=== PATIENT | female | born 1960 | race Caucasian/White ===

== ENCOUNTER 2021-09-23 17:20 | Inpatient (IN) | payer OTHER ==
[2021-09-23 17:50] VITALS: BMI 30.7
[2021-09-23] MEDS ORDERED: IBUPROFEN 400 MG TABLET (FP) PO PRN (19:30)
[2021-09-23] MEDS ORDERED: chlordiazePOXIDE HCL 25 MG CAPSULE PO PRN (19:30)
[2021-09-23] MEDS ORDERED: BISMUTH SUBSALICYLATE 524 MG/30 ML PO PRN (19:30)
[2021-09-23] MEDS ORDERED: BENZOCAINE/MENTHOL (CHLORASEPTIC ) LOZENGE MM PRN (19:30)
[2021-09-23] MEDS ORDERED: METHOCARBAMOL 500 MG TABLET PO PRN (19:30)
[2021-09-23] MEDS ORDERED: MAGNESIUM CITRATE 300 ML BOTTLE PO PRN (19:30)
[2021-09-23] MEDS ORDERED: MAG HYDROX/AL HYDROX/SIMETH 30 ML UNIT-DOSE CUP PO PRN (19:30)
[2021-09-23] MEDS ORDERED: ACETAMINOPHEN 325 MG TABLET (FP) PO PRN ×2 (19:30)
[2021-09-23] MEDS ORDERED: DICYCLOMINE HCL 10 MG CAPSULE PO PRN (19:30)
[2021-09-23] MEDS ORDERED: LOPERAMIDE HCL 2 MG CAPSULE PO PRN (19:30)
[2021-09-23] MEDS ORDERED: IBUPROFEN 600 MG TABLET (FP) PO PRN (19:30)
[2021-09-23] MEDS ORDERED: ONDANSETRON *ODT* 4 MG TABLET SL PRN (19:30)
[2021-09-23] MEDS ORDERED: MAGNESIUM HYDROX 2400MG/30ML ORAL SUSPENSION 30 ML CUP PO PRN (19:30)
[2021-09-23] MEDS ORDERED: LORazepam 1 MG TABLET PO PRN (20:58)
[2021-09-23] MEDS: THIAMINE HCL 100 MG TABLET (FP) PO SCH (22:56)
[2021-09-23] MEDS: LORazepam 2 MG TABLET PO SCH (22:56)
[2021-09-23] MEDS: MELATONIN 5 MG TABLETS PO SCH (22:57)
[2021-09-23] MEDS ORDERED: chlordiazePOXIDE HCL 25 MG CAPSULE PO SCH (23:00)
[2021-09-24] MEDS: BACITRACIN 0.9 GM PACKET TP SCH ×3 (01:17→23:54)
[2021-09-24] MEDS: LORazepam 2 MG TABLET PO SCH ×4 (06:19→23:31)
[2021-09-24 07:14] VITALS: PULSE 102
[2021-09-24] MEDS: AMOX TR/POT CLAV 875MG/125MG TABLETS (FP) PO SCH ×2 (07:29→17:02)
[2021-09-24 09:32] VITALS: BP 136/70; TEMP 96.6
[2021-09-24] MEDS ORDERED: PRENATAL VITAMINS W/ FOLIC ACID TABLET (FP) PO SCH (10:00)
[2021-09-24 12:58] LABS: HEMATOCRIT 43.2 % (32.4-45.2); HEMOGLOBIN 14.8 GM/dL (10.7-15.3); MCH 29.7 pg (25.7-33.7); MCHC 34.3 g/dl (32.0-36.0); MEAN CELL VOLUME 86.7 fl (80-96); PLATELET COUNT 214 10^3/uL (134-434); RBC 4.98 M/mm3 (3.60-5.2); RDW 15.2 % (11.6-15.6); WHITE BLOOD COUNT 8.1 K/mm3 (4.0-10.0)
[2021-09-24 13:17] LABS: ALBUMIN 3.6 g/dl (3.4-5.0); BLOOD UREA NITROGEN 11.8 mg/dL (7-18); CALCIUM 9.1 mg/dL (8.5-10.1); CREATININE 0.5 mg/dL (0.55-1.3)
[2021-09-24 13:19] LABS: BILIRUBIN,TOTAL 1.2 mg/dL (0.2-1)
[2021-09-24 13:20] LABS: TOT PROT 6.8 g/dl (6.4-8.2)
[2021-09-24] MEDS ORDERED: FAMOTIDINE 20 MG TABLET PO SCH (22:00)
[2021-09-24] MEDS ORDERED: POTASSIUM CHLORIDE ORAL LIQUID 20 MEQ/15 ML PO SCH (22:00)
[2021-09-24] MEDS: MELATONIN 5 MG TABLETS PO SCH (23:54)
[2021-09-24] MEDS: THIAMINE HCL 100 MG TABLET (FP) PO SCH (23:55)
[2021-09-25] MEDS ORDERED: LORazepam 1 MG TABLET PO SCH (05:00)
[2021-09-25] MEDS ORDERED: chlordiazePOXIDE HCL 25 MG CAPSULE PO SCH (05:00)
[2021-09-25] MEDS ORDERED: ASPIRIN 81 MG CHEWABLE TABLETS PO SCH (10:00)
[2021-09-26] MEDS ORDERED: chlordiazePOXIDE HCL 10 MG CAPSULE PO PRN
[2021-09-26] MEDS ORDERED: LORazepam 0.5 MG TABLET PO PRN
[2021-09-26] MEDS ORDERED: chlordiazePOXIDE HCL 10 MG CAPSULE PO SCH (05:00)
[2021-09-26] MEDS ORDERED: LORazepam 0.5 MG TABLET PO SCH (05:00)
[2021-09-27] MEDS ORDERED: chlordiazePOXIDE HCL 10 MG CAPSULE PO SCH (05:00)
[2021-09-27] MEDS ORDERED: LORazepam 0.5 MG TABLET PO ONE (05:00)
[2021-09-28] MEDS ORDERED: chlordiazePOXIDE HCL 10 MG CAPSULE PO ONE (05:00)
== END 2021-09-24 00:55 | disposition short-term general hospital (02) | DRG 773 ==
LOC: YASAS 17:20 → Y6N 19:12
PROVIDERS: ADMIT Allergy & Immunology; ATTEND Surgery
PROC: HZ2ZZZZ Detoxification Services for Substance Abuse Treatment (ICD-10-PCS; principal; 2021-09-23)
DX: F11.23 Opioid dependence with withdrawal (principal); F10.230 Alcohol dependence with withdrawal, uncomplicated; F32.A Depression, unspecified; F41.9 Anxiety disorder, unspecified; I48.91 Unspecified atrial fibrillation; I10 Essential (primary) hypertension; K21.9 Gastro-esophageal reflux disease without esophagitis; M54.41 Lumbago with sciatica, right side; G89.29 Other chronic pain; Z56.0 Unemployment, unspecified; Z87.891 Personal history of nicotine dependence
CPT/HCPCS: 36415; 80053; 85027; 86780; 87811; 93005; 93010; C9803-CS; U0003; U0005

== ENCOUNTER 2021-09-24 11:34 | Inpatient (IN) | payer OTHER ==
[2021-09-24] MEDS ORDERED: SODIUM CHLORIDE 0.9% 500 ML INFUS.BAG IV ONE (12:12)
[2021-09-24] MEDS ORDERED: METOPROLOL TARTRATE 5 MG/5 ML VIAL IVPUSH ONE ×2 (12:25→13:48)
[2021-09-24] MEDS ORDERED: METOPROLOL TARTRATE 5 MG/5 ML VIAL ONE ×2 (12:37→13:55)
[2021-09-24 13:04] LABS: BASO % 1.2 % (0-2.0); EOS % 1.3 % (0-4.5); HEMATOCRIT 43.2 % (32.4-45.2); HEMOGLOBIN 14.6 GM/dL (10.7-15.3); LYMPH % 22.5 % (8-40); MCH 29.2 pg (25.7-33.7); MCHC 33.8 g/dl (32.0-36.0); MEAN CELL VOLUME 86.2 fl (80-96); MEAN PLT VOLUME 7.6 fl (7.5-11.1); MONO % 7.5 % (3.8-10.2); NEUT % 67.5 % (42.8-82.8); PLATELET COUNT 203 10^3/uL (134-434); RBC 5.01 M/mm3 (3.60-5.2); RDW 15.3 % (11.6-15.6); WHITE BLOOD COUNT 8.8 K/mm3 (4.0-10.0)
[2021-09-24 13:10] LABS: EPI CELLS 5 /uL (0-25.1); HYALINE CASTS 1 /uL (0-3.1); URINE APPEARANCE CLEAR; URINE BACTERIA 10 /uL (0-1359); URINE BILIRUBIN NEGATIVE (NEGATIVE); URINE COLOR YELLOW; URINE GLUCOSE (UA) NEGATIVE (NEGATIVE); URINE KETONE 1+ (NEGATIVE); URINE LEUK ESTERASE NEGATIVE (NEGATIVE); URINE NITRITE NEGATIVE (NEGATIVE); URINE PROTEIN 1+ (NEGATIVE); URINE RBC 51 /uL (0-23.9); URINE WBC 13 /uL (0-25.8)
[2021-09-24 13:12] LABS: INR 1.09 (0.83-1.09); PROTHROMBIN TIME (PATIENT) 12.6 SEC (9.7-13.0)
[2021-09-24 13:14] LABS: ACTIVATED PTT 30.3 SECONDS (25.2-36.5)
[2021-09-24 13:33] LABS: CALCIUM 9.2 mg/dL (8.5-10.1)
[2021-09-24 13:34] LABS: ALBUMIN 3.5 g/dl (3.4-5.0); BLOOD UREA NITROGEN 12.3 mg/dL (7-18); MAGNESIUM 1.8 mg/dL (1.8-2.4)
[2021-09-24 13:37] LABS: CREATININE 0.4 mg/dL (0.55-1.3)
[2021-09-24 13:38] LABS: TOT PROT 6.8 g/dl (6.4-8.2)
[2021-09-24 13:39] LABS: BILIRUBIN,TOTAL 1.5 mg/dL (0.2-1)
[2021-09-24] MEDS ORDERED: metoPROLOL SUCCINATE 25 MG TAB.SR.24H (FP) PO ONE (13:48)
[2021-09-24] MEDS ORDERED: METOPROLOL TARTRATE 5 MG/5 ML VIAL IVPUSH PRN (15:05)
[2021-09-24] MEDS ORDERED: LORazepam 1 MG TABLET PO PRN (15:14)
[2021-09-24] MEDS ORDERED: LORazepam 1 MG TABLET ONE ×2 (16:25→22:10)
[2021-09-24] MEDS: LORazepam 1 MG TABLET PO SCH ×2 (16:29→22:16)
[2021-09-24 18:03] LABS: COCAINE, UR NEGATIVE (NEGATIVE); METHADONE, UR NEGATIVE (NEGATIVE); OPIATES, URI NEGATIVE (NEGATIVE); PHENCYCLIDINE,URINE NEGATIVE (NEGATIVE); URINE AMPHETAMINES NEGATIVE (NEGATIVE); URINE BARBITURATES NEGATIVE (NEGATIVE); URINE BENZODIAZEPINES NEGATIVE (NEGATIVE)
[2021-09-24] MEDS ORDERED: METOPROLOL TARTRATE 50 MG TABLET (FP) PO SCH (22:00)
[2021-09-24] MEDS ORDERED: FAMOTIDINE 20 MG TABLET ONE (22:10)
[2021-09-24] MEDS: FAMOTIDINE 20 MG TABLET PO SCH (22:16)
[2021-09-25] MEDS ORDERED: LORazepam 1 MG TABLET ONE ×3 (05:28→17:57)
[2021-09-25] MEDS: LORazepam 1 MG TABLET PO SCH ×4 (05:36→22:37)
[2021-09-25 06:03] LABS: BASO % 0.2 % (0-2.0); EOS % 3.7 % (0-4.5); HEMATOCRIT 45.8 % (32.4-45.2); HEMOGLOBIN 15.3 GM/dL (10.7-15.3); LYMPH % 41.4 % (8-40); MCH 29.1 pg (25.7-33.7); MCHC 33.3 g/dl (32.0-36.0); MEAN CELL VOLUME 87.3 fl (80-96); MONO % 6.3 % (3.8-10.2); NEUT % 48.4 % (42.8-82.8); PLATELET COUNT 219 10^3/uL (134-434); RBC 5.24 M/mm3 (3.60-5.2); WHITE BLOOD COUNT 6.9 K/mm3 (4.0-10.0)
[2021-09-25 06:22] LABS: CALCIUM 8.7 mg/dL (8.5-10.1)
[2021-09-25 06:23] LABS: MAGNESIUM 1.8 mg/dL (1.8-2.4)
[2021-09-25 06:24] LABS: ALBUMIN 3.3 g/dl (3.4-5.0); BLOOD UREA NITROGEN 7.9 mg/dL (7-18)
[2021-09-25 06:26] LABS: CREATININE 0.4 mg/dL (0.55-1.3); PHOSPHOROUS 3.3 mg/dL (2.5-4.9)
[2021-09-25 06:28] LABS: TOT PROT 6.8 g/dl (6.4-8.2)
[2021-09-25] MEDS ORDERED: METOPROLOL TARTRATE 5 MG/5 ML VIAL ONE (08:18)
[2021-09-25] MEDS ORDERED: FAMOTIDINE 20 MG TABLET ONE (09:13)
[2021-09-25] MEDS ORDERED: ASPIRIN 81 MG CHEWABLE TABLETS ONE (09:14)
[2021-09-25] MEDS ORDERED: ENOXAPARIN NA (PORCINE) 40 MG/0.4 ML DISP.SYRIN SQ ONE (09:14)
[2021-09-25] MEDS ORDERED: metoPROLOL SUCCINATE 25 MG TAB.SR.24H (FP) ONE (09:15)
[2021-09-25] MEDS ORDERED: ESCITALOPRAM OXALATE 10 MG TABLET ONE (09:16)
[2021-09-25] MEDS: FAMOTIDINE 20 MG TABLET PO SCH ×2 (09:28→22:37)
[2021-09-25] MEDS: ESCITALOPRAM OXALATE 20 MG TABLET PO SCH (09:28)
[2021-09-25] MEDS: ASPIRIN 81 MG CHEWABLE TABLETS PO SCH (09:28)
[2021-09-25] MEDS: ENOXAPARIN NA (PORCINE) 40 MG/0.4 ML DISP.SYRIN SQ SCH (09:28)
[2021-09-26 00:25] VITALS: BMI 31.1
[2021-09-26] MEDS: LORazepam 1 MG TABLET PO SCH ×4 (05:24→22:40)
[2021-09-26] MEDS: ESCITALOPRAM OXALATE 20 MG TABLET PO SCH (09:33)
[2021-09-26] MEDS: FAMOTIDINE 20 MG TABLET PO SCH ×2 (09:33→21:01)
[2021-09-26] MEDS: ASPIRIN 81 MG CHEWABLE TABLETS PO SCH (09:33)
[2021-09-26] MEDS: ENOXAPARIN NA (PORCINE) 40 MG/0.4 ML DISP.SYRIN SQ SCH (09:33)
[2021-09-26] MEDS ORDERED: FLU VACC QS2021-22(6MOS UP)/PF 60 MCG/0.5 ML SYRINGE IM ONE (10:00)
[2021-09-26] MEDS: PIPERACILLIN/TAZOB 3.375 GM 3.375 GM in DEXTROSE 5%-WATER - 50 ML IVPB SCH ×2 (13:40→17:14)
[2021-09-26] MEDS ORDERED: PIPERACILLIN/TAZOBACTAM 3.375 GM VIAL IVPB ONE ×2 (14:21→17:02)
[2021-09-26] MEDS ORDERED: DEXTROSE 5%-WATER - 50 ML IVPB ONE ×2 (14:21→17:02)
[2021-09-26] MEDS ORDERED: DIPHTH,PERTUSS(ACELL),TET VAC 0.5 ML VIAL IM ONE (15:00)
[2021-09-26] MEDS ORDERED: PIPERACILLIN/TAZOB 3.375 GM 3.375 GM in DEXTROSE 5%-WATER - 50 ML IVPB SCH (18:00)
[2021-09-27] MEDS ORDERED: LORazepam 0.5 MG TABLET PO PRN
[2021-09-27] MEDS ORDERED: PIPERACILLIN/TAZOBACTAM 3.375 GM VIAL IVPB ONE ×2 (00:27→08:50)
[2021-09-27] MEDS ORDERED: DEXTROSE 5%-WATER - 50 ML IVPB ONE ×2 (00:28→08:50)
[2021-09-27] MEDS: PIPERACILLIN/TAZOB 3.375 GM 3.375 GM in DEXTROSE 5%-WATER - 50 ML IVPB SCH ×2 (01:02→10:13)
[2021-09-27] MEDS: LORazepam 0.5 MG TABLET PO SCH ×3 (06:05→16:40)
[2021-09-27 06:59] LABS: BASO % 1.2 % (0-2.0); EOS % 3.2 % (0-4.5); HEMATOCRIT 40.4 % (32.4-45.2); HEMOGLOBIN 13.7 GM/dL (10.7-15.3); LYMPH % 25.7 % (8-40); MCH 29.4 pg (25.7-33.7); MCHC 33.9 g/dl (32.0-36.0); MEAN CELL VOLUME 86.6 fl (80-96); MEAN PLT VOLUME 8.2 fl (7.5-11.1); MONO % 5.5 % (3.8-10.2); NEUT % 64.4 % (42.8-82.8); PLATELET COUNT 174 10^3/uL (134-434); RBC 4.67 M/mm3 (3.60-5.2); RDW 14.6 % (11.6-15.6); WHITE BLOOD COUNT 7.9 K/mm3 (4.0-10.0)
[2021-09-27 07:22] LABS: ALBUMIN 3.3 g/dl (3.4-5.0); BLOOD UREA NITROGEN 8.7 mg/dL (7-18); CALCIUM 8.7 mg/dL (8.5-10.1)
[2021-09-27 07:24] LABS: MAGNESIUM 1.8 mg/dL (1.8-2.4)
[2021-09-27 07:25] LABS: CREATININE 0.5 mg/dL (0.55-1.3); PHOSPHOROUS 3.2 mg/dL (2.5-4.9)
[2021-09-27 07:27] LABS: BILIRUBIN,TOTAL 0.6 mg/dL (0.2-1); TOT PROT 6.5 g/dl (6.4-8.2)
[2021-09-27] MEDS: ASPIRIN 81 MG CHEWABLE TABLETS PO SCH (10:14)
[2021-09-27] MEDS: ESCITALOPRAM OXALATE 20 MG TABLET PO SCH (10:14)
[2021-09-27] MEDS: FAMOTIDINE 20 MG TABLET PO SCH (10:14)
[2021-09-27] MEDS: ENOXAPARIN NA (PORCINE) 40 MG/0.4 ML DISP.SYRIN SQ SCH (10:14)
[2021-09-27] MEDS: BACITRACIN/POLYMYXIN B SULFATE 15 GM TUBE TP SCH ×2 (13:32→16:41)
[2021-09-27 14:52] VITALS: BP 150/82; PULSE 79; TEMP 98.4
[2021-09-27] MEDS ORDERED: AMOX TR/POT CLAV 875MG/125MG TABLETS (FP) PO SCH (17:30)
[2021-09-28] MEDS ORDERED: LORazepam 0.5 MG TABLET PO ONE (05:00)
== END 2021-09-27 17:18 | disposition other institution (70) | DRG 201 ==
LOC: JER 11:34 → SUATTDRO 11:34 → JERBED 09-25 06:08 → J4W 09-25 22:29
PROVIDERS: ADMIT Internal Medicine; ATTEND Internal Medicine
DX: I48.0 Paroxysmal atrial fibrillation (principal); F10.20 Alcohol dependence, uncomplicated; I10 Essential (primary) hypertension; K76.0 Fatty (change of) liver, not elsewhere classified; S61.253A Open bite of left middle finger without damage to nail, initial encounter; M54.31 Sciatica, right side; F41.9 Anxiety disorder, unspecified; G56.01 Carpal tunnel syndrome, right upper limb; F10.230 Alcohol dependence with withdrawal, uncomplicated; F32.A Depression, unspecified; R74.01 Elevation of levels of liver transaminase levels; E66.9 Obesity, unspecified; Z68.31 Body mass index [BMI] 31.0-31.9, adult; W54.0XXA Bitten by dog, initial encounter; Y92.89 Other specified places as the place of occurrence of the external cause; Y99.8 Other external cause status
CPT/HCPCS: 36415; 71045-TC-FY; 71250-TC; 73130-TC-LT-FY; 80053; 80061; 80307; 81003; 83036; 83690; 83735; 84100; 84443; 84484; 85025; 85610; 85730; 87086; 90686; 93005; 93010; 93306-TC; 99285-25; C9803-CS; G0008; U0003; U0005

== ENCOUNTER 2021-09-27 17:44 | Inpatient (IN) | payer OTHER ==
[2021-09-27 18:21] VITALS: BMI 31.1
[2021-09-27] MEDS ORDERED: METHOCARBAMOL 500 MG TABLET PO PRN (20:18)
[2021-09-27] MEDS ORDERED: MELATONIN 5 MG TABLETS PO PRN (20:18)
[2021-09-27] MEDS ORDERED: MAG HYDROX/AL HYDROX/SIMETH 30 ML UNIT-DOSE CUP PO PRN (20:18)
[2021-09-27] MEDS ORDERED: BENZOCAINE/MENTHOL (CHLORASEPTIC ) LOZENGE MM PRN (20:18)
[2021-09-27] MEDS ORDERED: LOPERAMIDE HCL 2 MG CAPSULE PO PRN (20:18)
[2021-09-27] MEDS ORDERED: IBUPROFEN 400 MG TABLET (FP) PO PRN (20:18)
[2021-09-27] MEDS ORDERED: hydrOXYzine PAMOATE 25 MG CAPSULE (FP) PO PRN (20:18)
[2021-09-27] MEDS ORDERED: MAGNESIUM CITRATE 300 ML BOTTLE PO PRN (20:18)
[2021-09-27] MEDS ORDERED: IBUPROFEN 600 MG TABLET (FP) PO PRN (20:18)
[2021-09-27] MEDS ORDERED: DICYCLOMINE HCL 10 MG CAPSULE PO PRN (20:18)
[2021-09-27] MEDS ORDERED: ONDANSETRON *ODT* 4 MG TABLET SL PRN (20:18)
[2021-09-27] MEDS ORDERED: ACETAMINOPHEN 325 MG TABLET (FP) PO PRN ×2 (20:18)
[2021-09-27] MEDS ORDERED: MAGNESIUM HYDROX 2400MG/30ML ORAL SUSPENSION 30 ML CUP PO PRN (20:18)
[2021-09-27] MEDS ORDERED: BISMUTH SUBSALICYLATE 524 MG/30 ML PO PRN (20:18)
[2021-09-27] MEDS ORDERED: LORazepam 0.5 MG TABLET PO PRN (20:20)
[2021-09-27] MEDS ORDERED: LORazepam 0.5 MG TABLET PO SCH (22:00)
[2021-09-27] MEDS ORDERED: THIAMINE HCL 100 MG TABLET (FP) PO SCH (22:00)
[2021-09-27] MEDS: FAMOTIDINE 20 MG TABLET PO SCH (22:58)
[2021-09-28] MEDS ORDERED: LORazepam 0.5 MG TABLET PO ONE (05:00)
[2021-09-28] MEDS ORDERED: AMOX TR/POT CLAV 875MG/125MG TABLETS (FP) PO SCH (08:00)
[2021-09-28 09:00] VITALS: BP 118/71; PULSE 71; TEMP 97.1
[2021-09-28] MEDS ORDERED: PRENATAL VITAMINS W/ FOLIC ACID TABLET (FP) PO SCH (10:00)
[2021-09-28] MEDS ORDERED: ASPIRIN 81 MG CHEWABLE TABLETS PO SCH (10:00)
[2021-09-28] MEDS ORDERED: BACITRACIN/POLYMYXIN B SULFATE 15 GM TUBE TP SCH (10:00)
[2021-09-28] MEDS: FAMOTIDINE 20 MG TABLET PO SCH (10:47)
== END 2021-09-28 14:17 | disposition other institution (70) | DRG 775 ==
LOC: YASAS 17:44 → Y3N 20:39
PROVIDERS: ADMIT Allergy & Immunology; ATTEND Surgery
PROC: HZ2ZZZZ Detoxification Services for Substance Abuse Treatment (ICD-10-PCS; principal; 2021-09-27)
DX: F10.230 Alcohol dependence with withdrawal, uncomplicated (principal); F41.9 Anxiety disorder, unspecified; F32.A Depression, unspecified; I48.91 Unspecified atrial fibrillation; I10 Essential (primary) hypertension; S61.253A Open bite of left middle finger without damage to nail, initial encounter; W54.0XXA Bitten by dog, initial encounter; Y92.9 Unspecified place or not applicable
CPT/HCPCS: 87811

== ENCOUNTER 2021-09-28 14:27 | Inpatient (IN) | payer OTHER ==
[2021-09-28] MEDS ORDERED: ACETAMINOPHEN 325 MG TABLET (FP) PO PRN (15:52)
[2021-09-28] MEDS ORDERED: P-EPHED 60MG/TRIPROLIDI 2.5MG TABLET PO PRN (15:52)
[2021-09-28] MEDS ORDERED: MAG HYDROX/AL HYDROX/SIMETH 30 ML UNIT-DOSE CUP PO PRN (15:52)
[2021-09-28] MEDS ORDERED: guaiFENesin 200 MG/10 ML 10 ML UNIT-DOSE CUPS PO PRN (15:52)
[2021-09-28] MEDS ORDERED: NICOTINE 10 MG CARTRIDGE (INHALER) IH PRN (15:52)
[2021-09-28] MEDS ORDERED: MAGNESIUM HYDROX 2400MG/30ML ORAL SUSPENSION 30 ML CUP PO PRN (15:52)
[2021-09-28] MEDS ORDERED: LOPERAMIDE HCL 2 MG CAPSULE PO PRN (15:52)
[2021-09-28] MEDS ORDERED: BENZOCAINE/MENTHOL (CHLORASEPTIC ) LOZENGE MM PRN (15:52)
[2021-09-28] MEDS ORDERED: MAGNESIUM CITRATE 300 ML BOTTLE PO PRN (15:52)
[2021-09-28] MEDS ORDERED: METHOCARBAMOL 500 MG TABLET PO PRN (16:37)
[2021-09-28] MEDS: AMOX TR/POT CLAV 875MG/125MG TABLETS (FP) PO SCH (17:37)
[2021-09-28] MEDS: FAMOTIDINE 20 MG TABLET PO SCH (21:42)
[2021-09-28] MEDS: THIAMINE HCL 100 MG TABLET (FP) PO SCH (21:42)
[2021-09-28] MEDS: hydrOXYzine PAMOATE 25 MG CAPSULE (FP) PO PRN (21:44)
[2021-09-28] MEDS ORDERED: MELATONIN 5 MG TABLETS PO SCH (22:00)
[2021-09-29] MEDS: IBUPROFEN 400 MG TABLET (FP) PO PRN (06:48)
[2021-09-29] MEDS: AMOX TR/POT CLAV 875MG/125MG TABLETS (FP) PO SCH ×2 (07:02→17:30)
[2021-09-29] MEDS: PRENATAL VITAMINS W/ FOLIC ACID TABLET (FP) PO SCH (10:50)
[2021-09-29] MEDS: FAMOTIDINE 20 MG TABLET PO SCH ×2 (10:50→21:54)
[2021-09-29] MEDS: ASPIRIN 81 MG CHEWABLE TABLETS PO SCH (10:50)
[2021-09-29] MEDS: NICOTINE 7 MG/24 HOURS TOPICAL PATCH TD SCH (10:50)
[2021-09-29] MEDS: ESCITALOPRAM OXALATE 10 MG TABLET PO SCH (14:50)
[2021-09-29] MEDS: BACITRACIN/POLYMYXIN B SULFATE 15 GM TUBE TP SCH (15:02)
[2021-09-29] MEDS: metoPROLOL SUCCINATE 25 MG TAB.SR.24H (FP) PO SCH (15:58)
[2021-09-29] MEDS: MELATONIN 5 MG TABLETS PO SCH (21:52)
[2021-09-29] MEDS: THIAMINE HCL 100 MG TABLET (FP) PO SCH (21:52)
[2021-09-30] MEDS: AMOX TR/POT CLAV 875MG/125MG TABLETS (FP) PO SCH ×2 (07:05→17:42)
[2021-09-30] MEDS: IBUPROFEN 400 MG TABLET (FP) PO PRN (10:30)
[2021-09-30] MEDS: ASPIRIN 81 MG CHEWABLE TABLETS PO SCH (10:31)
[2021-09-30] MEDS: ESCITALOPRAM OXALATE 10 MG TABLET PO SCH (10:31)
[2021-09-30] MEDS: FAMOTIDINE 20 MG TABLET PO SCH ×2 (10:31→21:45)
[2021-09-30] MEDS: BACITRACIN/POLYMYXIN B SULFATE 15 GM TUBE TP SCH (10:32)
[2021-09-30] MEDS: PRENATAL VITAMINS W/ FOLIC ACID TABLET (FP) PO SCH (10:32)
[2021-09-30] MEDS: NICOTINE 7 MG/24 HOURS TOPICAL PATCH TD SCH (10:32)
[2021-09-30] MEDS: metoPROLOL SUCCINATE 25 MG TAB.SR.24H (FP) PO SCH (11:57)
[2021-09-30] MEDS: MELATONIN 5 MG TABLETS PO SCH (21:45)
[2021-09-30] MEDS: THIAMINE HCL 100 MG TABLET (FP) PO SCH (21:45)
[2021-10-01] MEDS: AMOX TR/POT CLAV 875MG/125MG TABLETS (FP) PO SCH ×2 (09:12→18:08)
[2021-10-01] MEDS: PRENATAL VITAMINS W/ FOLIC ACID TABLET (FP) PO SCH (10:13)
[2021-10-01] MEDS: ASPIRIN 81 MG CHEWABLE TABLETS PO SCH (10:14)
[2021-10-01] MEDS: NICOTINE 7 MG/24 HOURS TOPICAL PATCH TD SCH (10:14)
[2021-10-01] MEDS: metoPROLOL SUCCINATE 25 MG TAB.SR.24H (FP) PO SCH (10:14)
[2021-10-01] MEDS: FAMOTIDINE 20 MG TABLET PO SCH ×2 (10:14→21:39)
[2021-10-01] MEDS: ESCITALOPRAM OXALATE 10 MG TABLET PO SCH (10:14)
[2021-10-01] MEDS: BACITRACIN/POLYMYXIN B SULFATE 15 GM TUBE TP SCH (10:15)
[2021-10-01] MEDS: THIAMINE HCL 100 MG TABLET (FP) PO SCH (21:38)
[2021-10-01] MEDS: MELATONIN 5 MG TABLETS PO SCH (21:38)
[2021-10-02] MEDS: AMOX TR/POT CLAV 875MG/125MG TABLETS (FP) PO SCH ×2 (07:08→17:08)
[2021-10-02] MEDS: metoPROLOL SUCCINATE 25 MG TAB.SR.24H (FP) PO SCH (10:24)
[2021-10-02] MEDS: NICOTINE 7 MG/24 HOURS TOPICAL PATCH TD SCH (10:24)
[2021-10-02] MEDS: FAMOTIDINE 20 MG TABLET PO SCH ×2 (10:24→21:36)
[2021-10-02] MEDS: ASPIRIN 81 MG CHEWABLE TABLETS PO SCH (10:24)
[2021-10-02] MEDS: ESCITALOPRAM OXALATE 10 MG TABLET PO SCH (10:24)
[2021-10-02] MEDS: PRENATAL VITAMINS W/ FOLIC ACID TABLET (FP) PO SCH (10:24)
[2021-10-02] MEDS: BACITRACIN/POLYMYXIN B SULFATE 15 GM TUBE TP SCH (10:25)
[2021-10-02] MEDS: IBUPROFEN 400 MG TABLET (FP) PO PRN (15:51)
[2021-10-02] MEDS: MELATONIN 5 MG TABLETS PO SCH (21:36)
[2021-10-02] MEDS: THIAMINE HCL 100 MG TABLET (FP) PO SCH (21:36)
[2021-10-03] MEDS: AMOX TR/POT CLAV 875MG/125MG TABLETS (FP) PO SCH ×2 (07:41→18:04)
[2021-10-03] MEDS: PRENATAL VITAMINS W/ FOLIC ACID TABLET (FP) PO SCH (10:05)
[2021-10-03] MEDS: metoPROLOL SUCCINATE 25 MG TAB.SR.24H (FP) PO SCH (10:05)
[2021-10-03] MEDS: ASPIRIN 81 MG CHEWABLE TABLETS PO SCH (10:05)
[2021-10-03] MEDS: FAMOTIDINE 20 MG TABLET PO SCH ×2 (10:05→22:35)
[2021-10-03] MEDS: ESCITALOPRAM OXALATE 10 MG TABLET PO SCH (10:05)
[2021-10-03] MEDS: BACITRACIN/POLYMYXIN B SULFATE 15 GM TUBE TP SCH (10:06)
[2021-10-03] MEDS: NICOTINE 7 MG/24 HOURS TOPICAL PATCH TD SCH (10:06)
[2021-10-03] MEDS: IBUPROFEN 400 MG TABLET (FP) PO PRN (15:41)
[2021-10-03] MEDS: MELATONIN 5 MG TABLETS PO SCH (22:35)
[2021-10-03] MEDS: THIAMINE HCL 100 MG TABLET (FP) PO SCH (22:35)
[2021-10-04] MEDS: ASPIRIN 81 MG CHEWABLE TABLETS PO SCH (10:04)
[2021-10-04] MEDS: BACITRACIN/POLYMYXIN B SULFATE 15 GM TUBE TP SCH (10:05)
[2021-10-04] MEDS: NICOTINE 7 MG/24 HOURS TOPICAL PATCH TD SCH (10:05)
[2021-10-04] MEDS: PRENATAL VITAMINS W/ FOLIC ACID TABLET (FP) PO SCH (10:05)
[2021-10-04] MEDS: FAMOTIDINE 20 MG TABLET PO SCH ×2 (10:05→21:36)
[2021-10-04] MEDS: metoPROLOL SUCCINATE 25 MG TAB.SR.24H (FP) PO SCH (10:08)
[2021-10-04] MEDS: ESCITALOPRAM OXALATE 10 MG TABLET PO SCH (11:05)
[2021-10-04] MEDS: MELATONIN 5 MG TABLETS PO SCH (21:36)
[2021-10-04] MEDS: THIAMINE HCL 100 MG TABLET (FP) PO SCH (21:36)
[2021-10-05] MEDS: PRENATAL VITAMINS W/ FOLIC ACID TABLET (FP) PO SCH (10:25)
[2021-10-05] MEDS: ESCITALOPRAM OXALATE 10 MG TABLET PO SCH (10:26)
[2021-10-05] MEDS: FAMOTIDINE 20 MG TABLET PO SCH ×2 (10:27→21:31)
[2021-10-05] MEDS: metoPROLOL SUCCINATE 25 MG TAB.SR.24H (FP) PO SCH (10:27)
[2021-10-05] MEDS: ASPIRIN 81 MG CHEWABLE TABLETS PO SCH (10:27)
[2021-10-05] MEDS: NICOTINE 7 MG/24 HOURS TOPICAL PATCH TD SCH (10:27)
[2021-10-05] MEDS: BACITRACIN/POLYMYXIN B SULFATE 15 GM TUBE TP SCH (11:58)
[2021-10-05] MEDS: THIAMINE HCL 100 MG TABLET (FP) PO SCH (21:31)
[2021-10-05] MEDS: MELATONIN 5 MG TABLETS PO SCH (21:31)
[2021-10-06] MEDS: PRENATAL VITAMINS W/ FOLIC ACID TABLET (FP) PO SCH (10:29)
[2021-10-06] MEDS: ESCITALOPRAM OXALATE 10 MG TABLET PO SCH (10:30)
[2021-10-06] MEDS: FAMOTIDINE 20 MG TABLET PO SCH ×2 (10:30→21:53)
[2021-10-06] MEDS: ASPIRIN 81 MG CHEWABLE TABLETS PO SCH (10:30)
[2021-10-06] MEDS: metoPROLOL SUCCINATE 25 MG TAB.SR.24H (FP) PO SCH ×2 (10:30→14:53)
[2021-10-06] MEDS: BACITRACIN/POLYMYXIN B SULFATE 15 GM TUBE TP SCH (10:31)
[2021-10-06] MEDS: NICOTINE 7 MG/24 HOURS TOPICAL PATCH TD SCH (10:31)
[2021-10-06] MEDS: THIAMINE HCL 100 MG TABLET (FP) PO SCH (21:53)
[2021-10-06] MEDS: MELATONIN 5 MG TABLETS PO SCH (21:53)
[2021-10-07] MEDS: PRENATAL VITAMINS W/ FOLIC ACID TABLET (FP) PO SCH (10:30)
[2021-10-07] MEDS: metoPROLOL SUCCINATE 25 MG TAB.SR.24H (FP) PO SCH (10:30)
[2021-10-07] MEDS: ESCITALOPRAM OXALATE 10 MG TABLET PO SCH (10:31)
[2021-10-07] MEDS: FAMOTIDINE 20 MG TABLET PO SCH ×2 (10:31→21:41)
[2021-10-07] MEDS: ASPIRIN 81 MG CHEWABLE TABLETS PO SCH (10:31)
[2021-10-07] MEDS: BACITRACIN/POLYMYXIN B SULFATE 15 GM TUBE TP SCH (10:33)
[2021-10-07] MEDS: THIAMINE HCL 100 MG TABLET (FP) PO SCH (21:41)
[2021-10-07] MEDS: MELATONIN 5 MG TABLETS PO SCH (21:42)
[2021-10-07] MEDS: hydrOXYzine PAMOATE 25 MG CAPSULE (FP) PO PRN (21:42)
[2021-10-08] MEDS: PRENATAL VITAMINS W/ FOLIC ACID TABLET (FP) PO SCH (10:32)
[2021-10-08] MEDS: metoPROLOL SUCCINATE 25 MG TAB.SR.24H (FP) PO SCH (10:32)
[2021-10-08] MEDS: ASPIRIN 81 MG CHEWABLE TABLETS PO SCH (10:32)
[2021-10-08] MEDS: ESCITALOPRAM OXALATE 10 MG TABLET PO SCH (10:32)
[2021-10-08] MEDS: FAMOTIDINE 20 MG TABLET PO SCH ×2 (10:32→21:59)
[2021-10-08] MEDS: BACITRACIN/POLYMYXIN B SULFATE 15 GM TUBE TP SCH (10:33)
[2021-10-08] MEDS: THIAMINE HCL 100 MG TABLET (FP) PO SCH (21:58)
[2021-10-08] MEDS: MELATONIN 5 MG TABLETS PO SCH (21:58)
[2021-10-08] MEDS: hydrOXYzine PAMOATE 25 MG CAPSULE (FP) PO PRN (22:00)
[2021-10-09] MEDS: ASPIRIN 81 MG CHEWABLE TABLETS PO SCH (10:47)
[2021-10-09] MEDS: FAMOTIDINE 20 MG TABLET PO SCH ×2 (10:47→22:08)
[2021-10-09] MEDS: PRENATAL VITAMINS W/ FOLIC ACID TABLET (FP) PO SCH (10:47)
[2021-10-09] MEDS: ESCITALOPRAM OXALATE 10 MG TABLET PO SCH (10:47)
[2021-10-09] MEDS: metoPROLOL SUCCINATE 25 MG TAB.SR.24H (FP) PO SCH (10:47)
[2021-10-09] MEDS: BACITRACIN/POLYMYXIN B SULFATE 15 GM TUBE TP SCH (10:47)
[2021-10-09] MEDS: MELATONIN 5 MG TABLETS PO SCH (22:07)
[2021-10-09] MEDS: hydrOXYzine PAMOATE 25 MG CAPSULE (FP) PO PRN (22:08)
[2021-10-09] MEDS: THIAMINE HCL 100 MG TABLET (FP) PO SCH (22:08)
[2021-10-10] MEDS: ESCITALOPRAM OXALATE 10 MG TABLET PO SCH (10:42)
[2021-10-10] MEDS: metoPROLOL SUCCINATE 25 MG TAB.SR.24H (FP) PO SCH (10:42)
[2021-10-10] MEDS: FAMOTIDINE 20 MG TABLET PO SCH ×2 (10:43→21:39)
[2021-10-10] MEDS: ASPIRIN 81 MG CHEWABLE TABLETS PO SCH (10:43)
[2021-10-10] MEDS: PRENATAL VITAMINS W/ FOLIC ACID TABLET (FP) PO SCH (10:43)
[2021-10-10] MEDS: BACITRACIN/POLYMYXIN B SULFATE 15 GM TUBE TP SCH (10:45)
[2021-10-10] MEDS: THIAMINE HCL 100 MG TABLET (FP) PO SCH (21:39)
[2021-10-10] MEDS: MELATONIN 5 MG TABLETS PO SCH (21:39)
[2021-10-10] MEDS: hydrOXYzine PAMOATE 25 MG CAPSULE (FP) PO PRN (21:40)
[2021-10-11] MEDS: ASPIRIN 81 MG CHEWABLE TABLETS PO SCH (10:43)
[2021-10-11] MEDS: FAMOTIDINE 20 MG TABLET PO SCH ×2 (10:43→21:41)
[2021-10-11] MEDS: ESCITALOPRAM OXALATE 10 MG TABLET PO SCH (10:43)
[2021-10-11] MEDS: PRENATAL VITAMINS W/ FOLIC ACID TABLET (FP) PO SCH (10:43)
[2021-10-11] MEDS: BACITRACIN/POLYMYXIN B SULFATE 15 GM TUBE TP SCH (10:44)
[2021-10-11] MEDS: metoPROLOL SUCCINATE 25 MG TAB.SR.24H (FP) PO SCH (10:45)
[2021-10-11] MEDS: MELATONIN 5 MG TABLETS PO SCH (21:41)
[2021-10-11] MEDS: THIAMINE HCL 100 MG TABLET (FP) PO SCH (21:41)
[2021-10-11] MEDS: hydrOXYzine PAMOATE 25 MG CAPSULE (FP) PO PRN (21:41)
[2021-10-12] MEDS: PRENATAL VITAMINS W/ FOLIC ACID TABLET (FP) PO SCH (10:32)
[2021-10-12] MEDS: ESCITALOPRAM OXALATE 10 MG TABLET PO SCH (10:33)
[2021-10-12] MEDS: FAMOTIDINE 20 MG TABLET PO SCH ×2 (10:33→21:53)
[2021-10-12] MEDS: metoPROLOL SUCCINATE 25 MG TAB.SR.24H (FP) PO SCH (10:33)
[2021-10-12] MEDS: BACITRACIN/POLYMYXIN B SULFATE 15 GM TUBE TP SCH (10:33)
[2021-10-12] MEDS: ASPIRIN 81 MG CHEWABLE TABLETS PO SCH (10:33)
[2021-10-12] MEDS: IBUPROFEN 400 MG TABLET (FP) PO PRN (14:04)
[2021-10-12] MEDS: MELATONIN 5 MG TABLETS PO SCH (21:52)
[2021-10-12] MEDS: hydrOXYzine PAMOATE 25 MG CAPSULE (FP) PO PRN (21:53)
[2021-10-12] MEDS: THIAMINE HCL 100 MG TABLET (FP) PO SCH (21:53)
[2021-10-13] MEDS: PRENATAL VITAMINS W/ FOLIC ACID TABLET (FP) PO SCH (10:38)
[2021-10-13] MEDS: ASPIRIN 81 MG CHEWABLE TABLETS PO SCH (10:38)
[2021-10-13] MEDS: metoPROLOL SUCCINATE 25 MG TAB.SR.24H (FP) PO SCH (10:38)
[2021-10-13] MEDS: FAMOTIDINE 20 MG TABLET PO SCH ×2 (10:38→21:43)
[2021-10-13] MEDS: ESCITALOPRAM OXALATE 10 MG TABLET PO SCH (10:38)
[2021-10-13] MEDS: BACITRACIN/POLYMYXIN B SULFATE 15 GM TUBE TP SCH (10:38)
[2021-10-13] MEDS: IBUPROFEN 400 MG TABLET (FP) PO PRN (10:39)
[2021-10-13] MEDS: THIAMINE HCL 100 MG TABLET (FP) PO SCH (21:43)
[2021-10-13] MEDS: MELATONIN 5 MG TABLETS PO SCH (21:43)
[2021-10-13] MEDS: hydrOXYzine PAMOATE 25 MG CAPSULE (FP) PO PRN (21:44)
[2021-10-14] MEDS: PRENATAL VITAMINS W/ FOLIC ACID TABLET (FP) PO SCH (10:24)
[2021-10-14] MEDS: FAMOTIDINE 20 MG TABLET PO SCH ×2 (10:25→21:46)
[2021-10-14] MEDS: ESCITALOPRAM OXALATE 10 MG TABLET PO SCH (10:25)
[2021-10-14] MEDS: ASPIRIN 81 MG CHEWABLE TABLETS PO SCH (10:25)
[2021-10-14] MEDS: metoPROLOL SUCCINATE 25 MG TAB.SR.24H (FP) PO SCH (10:25)
[2021-10-14] MEDS: BACITRACIN/POLYMYXIN B SULFATE 15 GM TUBE TP SCH (10:28)
[2021-10-14] MEDS: THIAMINE HCL 100 MG TABLET (FP) PO SCH (21:46)
[2021-10-14] MEDS: hydrOXYzine PAMOATE 25 MG CAPSULE (FP) PO PRN (21:46)
[2021-10-14] MEDS: MELATONIN 5 MG TABLETS PO SCH (21:46)
[2021-10-15] MEDS: ESCITALOPRAM OXALATE 10 MG TABLET PO SCH (10:02)
[2021-10-15] MEDS: FAMOTIDINE 20 MG TABLET PO SCH ×2 (10:02→21:45)
[2021-10-15] MEDS: PRENATAL VITAMINS W/ FOLIC ACID TABLET (FP) PO SCH (10:02)
[2021-10-15] MEDS: ASPIRIN 81 MG CHEWABLE TABLETS PO SCH (10:02)
[2021-10-15] MEDS: metoPROLOL SUCCINATE 25 MG TAB.SR.24H (FP) PO SCH (10:03)
[2021-10-15] MEDS: BACITRACIN/POLYMYXIN B SULFATE 15 GM TUBE TP SCH (10:03)
[2021-10-15] MEDS: IBUPROFEN 400 MG TABLET (FP) PO PRN (16:37)
[2021-10-15] MEDS: hydrOXYzine PAMOATE 25 MG CAPSULE (FP) PO PRN (21:45)
[2021-10-15] MEDS: MELATONIN 5 MG TABLETS PO SCH (21:45)
[2021-10-15] MEDS: THIAMINE HCL 100 MG TABLET (FP) PO SCH (21:45)
[2021-10-16] MEDS: metoPROLOL SUCCINATE 25 MG TAB.SR.24H (FP) PO SCH (10:23)
[2021-10-16] MEDS: ESCITALOPRAM OXALATE 10 MG TABLET PO SCH (10:24)
[2021-10-16] MEDS: FAMOTIDINE 20 MG TABLET PO SCH ×2 (10:24→22:04)
[2021-10-16] MEDS: ASPIRIN 81 MG CHEWABLE TABLETS PO SCH (10:24)
[2021-10-16] MEDS: PRENATAL VITAMINS W/ FOLIC ACID TABLET (FP) PO SCH (10:25)
[2021-10-16] MEDS: BACITRACIN/POLYMYXIN B SULFATE 15 GM TUBE TP SCH (10:25)
[2021-10-16] MEDS: IBUPROFEN 400 MG TABLET (FP) PO PRN (12:44)
[2021-10-16] MEDS: MELATONIN 5 MG TABLETS PO SCH (22:03)
[2021-10-16] MEDS: THIAMINE HCL 100 MG TABLET (FP) PO SCH (22:04)
[2021-10-16] MEDS: hydrOXYzine PAMOATE 25 MG CAPSULE (FP) PO PRN (22:04)
[2021-10-17] MEDS: PRENATAL VITAMINS W/ FOLIC ACID TABLET (FP) PO SCH (10:30)
[2021-10-17] MEDS: ASPIRIN 81 MG CHEWABLE TABLETS PO SCH (10:31)
[2021-10-17] MEDS: metoPROLOL SUCCINATE 25 MG TAB.SR.24H (FP) PO SCH (10:32)
[2021-10-17] MEDS: FAMOTIDINE 20 MG TABLET PO SCH ×2 (10:32→22:03)
[2021-10-17] MEDS: ESCITALOPRAM OXALATE 10 MG TABLET PO SCH (10:32)
[2021-10-17] MEDS: BACITRACIN/POLYMYXIN B SULFATE 15 GM TUBE TP SCH (10:34)
[2021-10-17] MEDS: IBUPROFEN 400 MG TABLET (FP) PO PRN (12:05)
[2021-10-17] MEDS: MELATONIN 5 MG TABLETS PO SCH (22:02)
[2021-10-17] MEDS: THIAMINE HCL 100 MG TABLET (FP) PO SCH (22:02)
[2021-10-17] MEDS: hydrOXYzine PAMOATE 25 MG CAPSULE (FP) PO PRN (22:03)
[2021-10-18] MEDS: PRENATAL VITAMINS W/ FOLIC ACID TABLET (FP) PO SCH (10:11)
[2021-10-18] MEDS: ESCITALOPRAM OXALATE 10 MG TABLET PO SCH (10:11)
[2021-10-18] MEDS: metoPROLOL SUCCINATE 25 MG TAB.SR.24H (FP) PO SCH (10:11)
[2021-10-18] MEDS: FAMOTIDINE 20 MG TABLET PO SCH ×2 (10:12→21:51)
[2021-10-18] MEDS: ASPIRIN 81 MG CHEWABLE TABLETS PO SCH (10:12)
[2021-10-18] MEDS: BACITRACIN/POLYMYXIN B SULFATE 15 GM TUBE TP SCH (10:12)
[2021-10-18] MEDS: MELATONIN 5 MG TABLETS PO SCH (21:51)
[2021-10-18] MEDS: THIAMINE HCL 100 MG TABLET (FP) PO SCH (21:51)
[2021-10-18] MEDS: hydrOXYzine PAMOATE 25 MG CAPSULE (FP) PO PRN (21:52)
[2021-10-19] MEDS: PRENATAL VITAMINS W/ FOLIC ACID TABLET (FP) PO SCH (10:14)
[2021-10-19] MEDS: FAMOTIDINE 20 MG TABLET PO SCH ×2 (10:15→21:31)
[2021-10-19] MEDS: ASPIRIN 81 MG CHEWABLE TABLETS PO SCH (10:15)
[2021-10-19] MEDS: metoPROLOL SUCCINATE 25 MG TAB.SR.24H (FP) PO SCH (10:15)
[2021-10-19] MEDS: ESCITALOPRAM OXALATE 10 MG TABLET PO SCH (10:15)
[2021-10-19] MEDS: BACITRACIN/POLYMYXIN B SULFATE 15 GM TUBE TP SCH (10:17)
[2021-10-19] MEDS: MELATONIN 5 MG TABLETS PO SCH (21:31)
[2021-10-19] MEDS: THIAMINE HCL 100 MG TABLET (FP) PO SCH (21:31)
[2021-10-19] MEDS: hydrOXYzine PAMOATE 25 MG CAPSULE (FP) PO PRN (21:31)
[2021-10-20 07:26] VITALS: BP 121/74; PULSE 67; TEMP 98.7
[2021-10-20] MEDS: ESCITALOPRAM OXALATE 10 MG TABLET PO SCH (08:42)
[2021-10-20] MEDS: FAMOTIDINE 20 MG TABLET PO SCH (08:42)
[2021-10-20] MEDS: metoPROLOL SUCCINATE 25 MG TAB.SR.24H (FP) PO SCH (08:42)
[2021-10-20] MEDS: ASPIRIN 81 MG CHEWABLE TABLETS PO SCH (08:42)
[2021-10-20] MEDS: PRENATAL VITAMINS W/ FOLIC ACID TABLET (FP) PO SCH (08:43)
== END 2021-10-20 08:45 | disposition home or self-care (01) | DRG 772 ==
LOC: YASAS 14:27 → Y5N 14:29
PROVIDERS: ADMIT Allergy & Immunology; ATTEND Psychiatry & Neurology Pain Medicine
PROC: HZ42ZZZ Group Counseling for Substance Abuse Treatment, Cognitive-Behavioral (ICD-10-PCS; principal; 2021-09-28)
DX: F10.20 Alcohol dependence, uncomplicated (principal); I10 Essential (primary) hypertension; G56.01 Carpal tunnel syndrome, right upper limb; M54.40 Lumbago with sciatica, unspecified side; G89.29 Other chronic pain; K76.0 Fatty (change of) liver, not elsewhere classified

== ENCOUNTER 2022-09-01 15:42 | Inpatient (IN) | payer OTHER ==
[2022-09-01 16:24] VITALS: BMI 32.0
[2022-09-01] MEDS ORDERED: AMMONIUM LACTATE 12% LOTION 225 GM BOTTLE TP PRN (18:07)
[2022-09-01] MEDS ORDERED: hydrOXYzine PAMOATE 25 MG CAPSULE (FP) PO PRN (18:07)
[2022-09-01] MEDS ORDERED: BENZONATATE 200 MG CAPSULE PO PRN (18:07)
[2022-09-01] MEDS ORDERED: guaiFENesin 600 MG TABLET.ER (FP) PO PRN (18:07)
[2022-09-01] MEDS ORDERED: LOPERAMIDE HCL 2 MG CAPSULE PO PRN (18:07)
[2022-09-01] MEDS ORDERED: NALOXONE HCL 0.4 MG/ML VIAL IM PRN (18:07)
[2022-09-01] MEDS ORDERED: MAGNESIUM HYDROX 2400MG/30ML ORAL SUSPENSION 30 ML CUP PO PRN (18:07)
[2022-09-01] MEDS ORDERED: POLYETHYLENE GLYCOL (HEALTHYLAX) 3350 17 GM PACKET PO PRN (18:07)
[2022-09-01] MEDS ORDERED: NALOXONE HCL (KLOXXADO) 8 MG SPRAY NS PRN (18:07)
[2022-09-01] MEDS ORDERED: COLLOIDAL OATMEAL 1 BAR EACH TP PRN (18:07)
[2022-09-01] MEDS ORDERED: MELATONIN 5 MG TABLETS PO SCH (22:00)
[2022-09-02] MEDS ORDERED: PRENATAL VITAMINS W/ FOLIC ACID TABLET (FP) PO ONE (09:55)
[2022-09-02] MEDS: PRENATAL VITAMINS W/ FOLIC ACID TABLET (FP) PO SCH (10:00)
[2022-09-02] MEDS: AMOX TR/POT CLAV 875MG/125MG TABLETS (FP) PO SCH ×2 (10:00→17:20)
[2022-09-02 15:24] LABS: HEMOGLOBIN 12.9 GM/dL (10.7-15.3); MCH 28.1 pg (25.7-33.7); MCHC 33.1 g/dl (32.0-36.0); MEAN CELL VOLUME 84.9 fl (80-96); MEAN PLT VOLUME 8.2 fl (7.5-11.1); PLATELET COUNT 193 10^3/uL (134-434); RBC 4.59 M/mm3 (3.60-5.2); RDW 13.7 % (11.6-15.6); WHITE BLOOD COUNT 7.6 K/mm3 (4.0-10.0)
[2022-09-02 15:27] LABS: POTASSIUM 4.4 mmol/L (3.5-5.1)
[2022-09-02 15:30] LABS: CALCIUM 8.7 mg/dL (8.5-10.1)
[2022-09-02 15:31] LABS: ALBUMIN 3.2 g/dl (3.4-5.0)
[2022-09-02 15:34] LABS: CREATININE 0.6 mg/dL (0.55-1.3)
[2022-09-02 15:35] LABS: BILIRUBIN,TOTAL 0.4 mg/dL (0.2-1); TOT PROT 6.4 g/dl (6.4-8.2)
[2022-09-02 16:51] LABS: EPI CELLS 34 /uL (0-25.1); HYALINE CASTS 1 /uL (0-3.1); URINE APPEARANCE CLEAR; URINE BACTERIA 26 /uL (0-1359); URINE BILIRUBIN NEGATIVE (NEGATIVE); URINE COLOR YELLOW; URINE GLUCOSE (UA) NEGATIVE (NEGATIVE); URINE KETONE NEGATIVE (NEGATIVE); URINE LEUK ESTERASE 2+ (NEGATIVE); URINE NITRITE NEGATIVE (NEGATIVE); URINE PROTEIN NEGATIVE (NEGATIVE); URINE RBC 17 /uL (0-23.9); URINE UROBILINOGEN 0.2 mg/dL (0.2-1.0); URINE WBC 17 /uL (0-25.8)
[2022-09-02] MEDS: THIAMINE HCL 100 MG TABLET (FP) PO SCH (21:43)
[2022-09-02] MEDS: MELATONIN 5 MG TABLETS PO PRN (21:43)
[2022-09-02] MEDS: FAMOTIDINE 20 MG TABLET PO SCH (21:44)
[2022-09-02] MEDS: hydrOXYzine PAMOATE 50 MG CAPSULE (FP) PO SCH (21:44)
[2022-09-02] MEDS: traZODone HCL 50 MG TABLET (FP) PO SCH (21:44)
[2022-09-02] MEDS ORDERED: ESCITALOPRAM OXALATE 10 MG TABLET PO SCH (22:00)
[2022-09-03] MEDS: BENZOCAINE/MENTHOL (CHLORASEPTIC ) LOZENGE MM PRN (03:22)
[2022-09-03] MEDS: AMOX TR/POT CLAV 875MG/125MG TABLETS (FP) PO SCH ×2 (07:46→17:53)
[2022-09-03] MEDS: ASPIRIN 81 MG CHEWABLE TABLETS PO SCH (09:50)
[2022-09-03] MEDS: PRENATAL VITAMINS W/ FOLIC ACID TABLET (FP) PO SCH (09:50)
[2022-09-03] MEDS: FAMOTIDINE 20 MG TABLET PO SCH ×2 (09:51→21:28)
[2022-09-03] MEDS: ESCITALOPRAM OXALATE 10 MG TABLET PO SCH (09:51)
[2022-09-03] MEDS: THIAMINE HCL 100 MG TABLET (FP) PO SCH ×2 (10:11→21:28)
[2022-09-03] MEDS: IBUPROFEN 600 MG TABLET (FP) PO PRN ×2 (13:50→20:55)
[2022-09-03] MEDS ORDERED: NALTREXONE MICROSPHERES (VIVITROL) 380 MG DISP.SYRIN IM SCH (15:15)
[2022-09-03] MEDS: BACITRACIN/POLYMYXIN B SULFATE 15 GM TUBE TP SCH (16:10)
[2022-09-03] MEDS ORDERED: AMOX TR/POT CLAV 875MG/125MG TABLETS (FP) PO SCH (17:30)
[2022-09-03] MEDS: GABAPENTIN 300 MG CAPSULE PO SCH (21:28)
[2022-09-03] MEDS: hydrOXYzine PAMOATE 50 MG CAPSULE (FP) PO SCH (21:28)
[2022-09-03] MEDS: traZODone HCL 50 MG TABLET (FP) PO SCH (21:28)
[2022-09-03] MEDS: MELATONIN 5 MG TABLETS PO PRN (21:29)
[2022-09-04] MEDS: GABAPENTIN 300 MG CAPSULE PO SCH ×3 (06:05→21:31)
[2022-09-04] MEDS: IBUPROFEN 600 MG TABLET (FP) PO PRN ×2 (06:05→15:44)
[2022-09-04] MEDS: AMOX TR/POT CLAV 875MG/125MG TABLETS (FP) PO SCH ×2 (07:00→18:49)
[2022-09-04] MEDS: PRENATAL VITAMINS W/ FOLIC ACID TABLET (FP) PO SCH (10:11)
[2022-09-04] MEDS: ESCITALOPRAM OXALATE 10 MG TABLET PO SCH (10:12)
[2022-09-04] MEDS: FAMOTIDINE 20 MG TABLET PO SCH ×2 (10:12→21:31)
[2022-09-04] MEDS: ASPIRIN 81 MG CHEWABLE TABLETS PO SCH (10:12)
[2022-09-04] MEDS: BACITRACIN/POLYMYXIN B SULFATE 15 GM TUBE TP SCH (10:13)
[2022-09-04] MEDS: hydrOXYzine PAMOATE 50 MG CAPSULE (FP) PO SCH (21:31)
[2022-09-04] MEDS: traZODone HCL 50 MG TABLET (FP) PO SCH (21:31)
[2022-09-04] MEDS: THIAMINE HCL 100 MG TABLET (FP) PO SCH (21:31)
[2022-09-04] MEDS: MELATONIN 5 MG TABLETS PO PRN (21:31)
[2022-09-05] MEDS: BENZOCAINE/MENTHOL (CHLORASEPTIC ) LOZENGE MM PRN (04:28)
[2022-09-05] MEDS: GABAPENTIN 300 MG CAPSULE PO SCH ×3 (06:21→21:39)
[2022-09-05] MEDS: IBUPROFEN 600 MG TABLET (FP) PO PRN ×2 (06:22→17:55)
[2022-09-05] MEDS: AMOX TR/POT CLAV 875MG/125MG TABLETS (FP) PO SCH (07:10)
[2022-09-05] MEDS: FAMOTIDINE 20 MG TABLET PO SCH ×2 (10:03→21:39)
[2022-09-05] MEDS: PRENATAL VITAMINS W/ FOLIC ACID TABLET (FP) PO SCH (10:03)
[2022-09-05] MEDS: ASPIRIN 81 MG CHEWABLE TABLETS PO SCH (10:03)
[2022-09-05] MEDS: ESCITALOPRAM OXALATE 10 MG TABLET PO SCH (10:03)
[2022-09-05] MEDS: BACITRACIN/POLYMYXIN B SULFATE 15 GM TUBE TP SCH (10:04)
[2022-09-05] MEDS: hydrOXYzine PAMOATE 50 MG CAPSULE (FP) PO SCH (21:39)
[2022-09-05] MEDS: THIAMINE HCL 100 MG TABLET (FP) PO SCH (21:39)
[2022-09-05] MEDS: MELATONIN 5 MG TABLETS PO PRN (21:39)
[2022-09-05] MEDS: traZODone HCL 50 MG TABLET (FP) PO SCH (21:39)
[2022-09-06] MEDS: GABAPENTIN 300 MG CAPSULE PO SCH ×3 (06:30→21:25)
[2022-09-06] MEDS: PRENATAL VITAMINS W/ FOLIC ACID TABLET (FP) PO SCH (09:57)
[2022-09-06] MEDS: ASPIRIN 81 MG CHEWABLE TABLETS PO SCH (09:58)
[2022-09-06] MEDS: FAMOTIDINE 20 MG TABLET PO SCH ×2 (09:58→21:25)
[2022-09-06] MEDS: BACITRACIN/POLYMYXIN B SULFATE 15 GM TUBE TP SCH (09:58)
[2022-09-06] MEDS: ESCITALOPRAM OXALATE 10 MG TABLET PO SCH (09:58)
[2022-09-06] MEDS ORDERED: BENZOCAINE 20 % GEL TUBE MM PRN (10:56)
[2022-09-06] MEDS: IBUPROFEN 600 MG TABLET (FP) PO PRN (11:15)
[2022-09-06] MEDS: AMOX TR/POT CLAV 875MG/125MG TABLETS (FP) PO SCH (18:05)
[2022-09-06] MEDS: hydrOXYzine PAMOATE 50 MG CAPSULE (FP) PO SCH (21:25)
[2022-09-06] MEDS: traZODone HCL 50 MG TABLET (FP) PO SCH (21:25)
[2022-09-06] MEDS: THIAMINE HCL 100 MG TABLET (FP) PO SCH (21:25)
[2022-09-07] MEDS: GABAPENTIN 300 MG CAPSULE PO SCH ×3 (06:32→21:27)
[2022-09-07] MEDS: AMOX TR/POT CLAV 875MG/125MG TABLETS (FP) PO SCH ×2 (07:08→17:35)
[2022-09-07] MEDS: PRENATAL VITAMINS W/ FOLIC ACID TABLET (FP) PO SCH (09:44)
[2022-09-07] MEDS: ASPIRIN 81 MG CHEWABLE TABLETS PO SCH (09:45)
[2022-09-07] MEDS: ESCITALOPRAM OXALATE 10 MG TABLET PO SCH (09:45)
[2022-09-07] MEDS: FAMOTIDINE 20 MG TABLET PO SCH ×2 (09:45→21:27)
[2022-09-07] MEDS: BACITRACIN/POLYMYXIN B SULFATE 15 GM TUBE TP SCH (09:45)
[2022-09-07] MEDS: IBUPROFEN 600 MG TABLET (FP) PO PRN (14:43)
[2022-09-07] MEDS: traZODone HCL 50 MG TABLET (FP) PO SCH (21:26)
[2022-09-07] MEDS: hydrOXYzine PAMOATE 50 MG CAPSULE (FP) PO SCH (21:27)
[2022-09-07] MEDS: THIAMINE HCL 100 MG TABLET (FP) PO SCH (21:27)
[2022-09-08] MEDS: GABAPENTIN 300 MG CAPSULE PO SCH ×3 (06:16→21:35)
[2022-09-08] MEDS: IBUPROFEN 400 MG TABLET (FP) PO PRN (06:17)
[2022-09-08] MEDS: AMOX TR/POT CLAV 875MG/125MG TABLETS (FP) PO SCH (07:03)
[2022-09-08] MEDS: PRENATAL VITAMINS W/ FOLIC ACID TABLET (FP) PO SCH (10:05)
[2022-09-08] MEDS: FAMOTIDINE 20 MG TABLET PO SCH ×2 (10:05→21:35)
[2022-09-08] MEDS: ASPIRIN 81 MG CHEWABLE TABLETS PO SCH (10:05)
[2022-09-08] MEDS: ESCITALOPRAM OXALATE 10 MG TABLET PO SCH (10:05)
[2022-09-08] MEDS: BACITRACIN/POLYMYXIN B SULFATE 15 GM TUBE TP SCH (10:05)
[2022-09-08] MEDS: MAG HYDROX/AL HYDROX/SIMETH 30 ML UNIT-DOSE CUP PO PRN (20:09)
[2022-09-08] MEDS: THIAMINE HCL 100 MG TABLET (FP) PO SCH (21:35)
[2022-09-08] MEDS: hydrOXYzine PAMOATE 50 MG CAPSULE (FP) PO SCH (21:35)
[2022-09-08] MEDS: traZODone HCL 50 MG TABLET (FP) PO SCH (21:35)
[2022-09-08] MEDS: AMOX TR/POT CLAV 500MG/125MG TABLETS (FP) PO SCH (21:36)
[2022-09-09] MEDS: GABAPENTIN 300 MG CAPSULE PO SCH ×3 (06:30→21:22)
[2022-09-09] MEDS: AMOX TR/POT CLAV 500MG/125MG TABLETS (FP) PO SCH ×2 (07:28→17:57)
[2022-09-09] MEDS: FAMOTIDINE 20 MG TABLET PO SCH ×2 (10:25→21:22)
[2022-09-09] MEDS: PRENATAL VITAMINS W/ FOLIC ACID TABLET (FP) PO SCH (10:25)
[2022-09-09] MEDS: BACITRACIN/POLYMYXIN B SULFATE 15 GM TUBE TP SCH (10:25)
[2022-09-09] MEDS: ASPIRIN 81 MG CHEWABLE TABLETS PO SCH (10:25)
[2022-09-09] MEDS: ESCITALOPRAM OXALATE 10 MG TABLET PO SCH (10:25)
[2022-09-09] MEDS: hydrOXYzine PAMOATE 50 MG CAPSULE (FP) PO SCH (21:22)
[2022-09-09] MEDS: traZODone HCL 50 MG TABLET (FP) PO SCH (21:22)
[2022-09-09] MEDS: THIAMINE HCL 100 MG TABLET (FP) PO SCH (21:23)
[2022-09-10] MEDS: AMOX TR/POT CLAV 500MG/125MG TABLETS (FP) PO SCH ×2 (07:18→17:36)
[2022-09-10] MEDS: GABAPENTIN 300 MG CAPSULE PO SCH ×3 (07:18→21:42)
[2022-09-10] MEDS: PRENATAL VITAMINS W/ FOLIC ACID TABLET (FP) PO SCH (10:25)
[2022-09-10] MEDS: BACITRACIN/POLYMYXIN B SULFATE 15 GM TUBE TP SCH (10:31)
[2022-09-10] MEDS: ASPIRIN 81 MG CHEWABLE TABLETS PO SCH (10:32)
[2022-09-10] MEDS: FAMOTIDINE 20 MG TABLET PO SCH ×2 (10:32→21:42)
[2022-09-10] MEDS: ESCITALOPRAM OXALATE 10 MG TABLET PO SCH (10:33)
[2022-09-10] MEDS: THIAMINE HCL 100 MG TABLET (FP) PO SCH (21:42)
[2022-09-10] MEDS: traZODone HCL 50 MG TABLET (FP) PO SCH (21:42)
[2022-09-10] MEDS: hydrOXYzine PAMOATE 50 MG CAPSULE (FP) PO SCH (22:11)
[2022-09-11] MEDS: GABAPENTIN 300 MG CAPSULE PO SCH ×3 (06:36→21:39)
[2022-09-11] MEDS: ASPIRIN 81 MG CHEWABLE TABLETS PO SCH (10:27)
[2022-09-11] MEDS: FAMOTIDINE 20 MG TABLET PO SCH ×2 (10:27→21:39)
[2022-09-11] MEDS: ESCITALOPRAM OXALATE 10 MG TABLET PO SCH (10:27)
[2022-09-11] MEDS: PRENATAL VITAMINS W/ FOLIC ACID TABLET (FP) PO SCH (10:29)
[2022-09-11] MEDS: BACITRACIN/POLYMYXIN B SULFATE 15 GM TUBE TP SCH (10:30)
[2022-09-11] MEDS: traZODone HCL 50 MG TABLET (FP) PO SCH (21:39)
[2022-09-11] MEDS: THIAMINE HCL 100 MG TABLET (FP) PO SCH (21:39)
[2022-09-11] MEDS: hydrOXYzine PAMOATE 50 MG CAPSULE (FP) PO SCH (21:39)
[2022-09-12] MEDS: GABAPENTIN 300 MG CAPSULE PO SCH ×3 (06:17→21:45)
[2022-09-12] MEDS: FAMOTIDINE 20 MG TABLET PO SCH ×2 (09:49→21:45)
[2022-09-12] MEDS: ASPIRIN 81 MG CHEWABLE TABLETS PO SCH (09:49)
[2022-09-12] MEDS: ESCITALOPRAM OXALATE 10 MG TABLET PO SCH (09:49)
[2022-09-12] MEDS: BACITRACIN/POLYMYXIN B SULFATE 15 GM TUBE TP SCH (09:50)
[2022-09-12] MEDS: PRENATAL VITAMINS W/ FOLIC ACID TABLET (FP) PO SCH (09:50)
[2022-09-12] MEDS: traZODone HCL 50 MG TABLET (FP) PO SCH (21:45)
[2022-09-12] MEDS: THIAMINE HCL 100 MG TABLET (FP) PO SCH (21:45)
[2022-09-12] MEDS: hydrOXYzine PAMOATE 50 MG CAPSULE (FP) PO SCH (21:45)
[2022-09-13] MEDS: GABAPENTIN 300 MG CAPSULE PO SCH ×3 (06:21→21:41)
[2022-09-13] MEDS: PRENATAL VITAMINS W/ FOLIC ACID TABLET (FP) PO SCH (10:07)
[2022-09-13] MEDS: BACITRACIN/POLYMYXIN B SULFATE 15 GM TUBE TP SCH (10:08)
[2022-09-13] MEDS: FAMOTIDINE 20 MG TABLET PO SCH ×2 (10:08→21:41)
[2022-09-13] MEDS: ESCITALOPRAM OXALATE 10 MG TABLET PO SCH (10:08)
[2022-09-13] MEDS: ASPIRIN 81 MG CHEWABLE TABLETS PO SCH (10:08)
[2022-09-13] MEDS: traZODone HCL 50 MG TABLET (FP) PO SCH (21:41)
[2022-09-13] MEDS: THIAMINE HCL 100 MG TABLET (FP) PO SCH (21:41)
[2022-09-13] MEDS: hydrOXYzine PAMOATE 50 MG CAPSULE (FP) PO SCH (21:41)
[2022-09-14] MEDS: IBUPROFEN 400 MG TABLET (FP) PO PRN (06:26)
[2022-09-14] MEDS: GABAPENTIN 300 MG CAPSULE PO SCH ×3 (06:27→21:17)
[2022-09-14] MEDS: FAMOTIDINE 20 MG TABLET PO SCH ×2 (10:06→21:17)
[2022-09-14] MEDS: ESCITALOPRAM OXALATE 10 MG TABLET PO SCH (10:06)
[2022-09-14] MEDS: PRENATAL VITAMINS W/ FOLIC ACID TABLET (FP) PO SCH (10:06)
[2022-09-14] MEDS: ASPIRIN 81 MG CHEWABLE TABLETS PO SCH (10:06)
[2022-09-14] MEDS: BACITRACIN/POLYMYXIN B SULFATE 15 GM TUBE TP SCH (10:06)
[2022-09-14] MEDS: hydrOXYzine PAMOATE 50 MG CAPSULE (FP) PO SCH (21:17)
[2022-09-14] MEDS: traZODone HCL 50 MG TABLET (FP) PO SCH (21:17)
[2022-09-14] MEDS: THIAMINE HCL 100 MG TABLET (FP) PO SCH (21:17)
[2022-09-15] MEDS: GABAPENTIN 300 MG CAPSULE PO SCH ×3 (06:20→21:35)
[2022-09-15] MEDS: ESCITALOPRAM OXALATE 10 MG TABLET PO SCH (10:13)
[2022-09-15] MEDS: PRENATAL VITAMINS W/ FOLIC ACID TABLET (FP) PO SCH (10:13)
[2022-09-15] MEDS: ASPIRIN 81 MG CHEWABLE TABLETS PO SCH (10:13)
[2022-09-15] MEDS: FAMOTIDINE 20 MG TABLET PO SCH ×2 (10:13→21:35)
[2022-09-15] MEDS: BACITRACIN/POLYMYXIN B SULFATE 15 GM TUBE TP SCH (10:14)
[2022-09-15] MEDS: HYDROCORTISONE 2.5% TOPICAL CREAM 30 GM TUBE RC PRN (21:34)
[2022-09-15] MEDS: traZODone HCL 50 MG TABLET (FP) PO SCH (21:35)
[2022-09-15] MEDS: hydrOXYzine PAMOATE 50 MG CAPSULE (FP) PO SCH (21:35)
[2022-09-15] MEDS: THIAMINE HCL 100 MG TABLET (FP) PO SCH (21:35)
[2022-09-16] MEDS: GABAPENTIN 300 MG CAPSULE PO SCH ×3 (06:38→21:10)
[2022-09-16] MEDS: IBUPROFEN 400 MG TABLET (FP) PO PRN (06:39)
[2022-09-16] MEDS: ESCITALOPRAM OXALATE 10 MG TABLET PO SCH (09:36)
[2022-09-16] MEDS: PRENATAL VITAMINS W/ FOLIC ACID TABLET (FP) PO SCH (09:36)
[2022-09-16] MEDS: ASPIRIN 81 MG CHEWABLE TABLETS PO SCH (09:36)
[2022-09-16] MEDS: FAMOTIDINE 20 MG TABLET PO SCH ×2 (09:36→21:11)
[2022-09-16] MEDS: BACITRACIN/POLYMYXIN B SULFATE 15 GM TUBE TP SCH (09:38)
[2022-09-16] MEDS: hydrOXYzine PAMOATE 50 MG CAPSULE (FP) PO SCH (21:10)
[2022-09-16] MEDS: traZODone HCL 50 MG TABLET (FP) PO SCH (21:11)
[2022-09-16] MEDS: THIAMINE HCL 100 MG TABLET (FP) PO SCH (21:11)
[2022-09-17] MEDS: GABAPENTIN 300 MG CAPSULE PO SCH ×3 (06:24→22:02)
[2022-09-17] MEDS: PRENATAL VITAMINS W/ FOLIC ACID TABLET (FP) PO SCH (10:17)
[2022-09-17] MEDS: FAMOTIDINE 20 MG TABLET PO SCH ×2 (10:17→22:02)
[2022-09-17] MEDS: ESCITALOPRAM OXALATE 10 MG TABLET PO SCH (10:18)
[2022-09-17] MEDS: ASPIRIN 81 MG CHEWABLE TABLETS PO SCH (10:18)
[2022-09-17] MEDS: BACITRACIN/POLYMYXIN B SULFATE 15 GM TUBE TP SCH (10:18)
[2022-09-17] MEDS: HYDROCORTISONE 2.5% TOPICAL CREAM 30 GM TUBE RC PRN (10:20)
[2022-09-17] MEDS: ACETAMINOPHEN 325 MG TABLET (FP) PO PRN (14:54)
[2022-09-17] MEDS: traZODone HCL 50 MG TABLET (FP) PO SCH (22:02)
[2022-09-17] MEDS: THIAMINE HCL 100 MG TABLET (FP) PO SCH (22:02)
[2022-09-17] MEDS: hydrOXYzine PAMOATE 50 MG CAPSULE (FP) PO SCH (22:02)
[2022-09-18] MEDS: GABAPENTIN 300 MG CAPSULE PO SCH ×3 (06:09→22:30)
[2022-09-18] MEDS: PRENATAL VITAMINS W/ FOLIC ACID TABLET (FP) PO SCH (09:47)
[2022-09-18] MEDS: ESCITALOPRAM OXALATE 10 MG TABLET PO SCH (09:47)
[2022-09-18] MEDS: ASPIRIN 81 MG CHEWABLE TABLETS PO SCH (09:48)
[2022-09-18] MEDS: ACETAMINOPHEN 325 MG TABLET (FP) PO PRN (09:48)
[2022-09-18] MEDS: BACITRACIN/POLYMYXIN B SULFATE 15 GM TUBE TP SCH (09:48)
[2022-09-18] MEDS: FAMOTIDINE 20 MG TABLET PO SCH ×2 (09:48→22:30)
[2022-09-18] MEDS: LIDOCAINE 5% TOPICAL PATCH TP SCH (12:36)
[2022-09-18] MEDS: IBUPROFEN 400 MG TABLET (FP) PO PRN (16:06)
[2022-09-18 16:54] LABS: EPI CELLS 17 /uL (0-25.1); HYALINE CASTS 2 /uL (0-3.1); PH,URINE 7.5 (5.0-8.0); URINE APPEARANCE CLEAR; URINE BACTERIA 87 /uL (0-1359); URINE BILIRUBIN NEGATIVE (NEGATIVE); URINE COLOR YELLOW; URINE GLUCOSE (UA) NEGATIVE (NEGATIVE); URINE KETONE NEGATIVE (NEGATIVE); URINE LEUK ESTERASE 2+ (NEGATIVE); URINE NITRITE NEGATIVE (NEGATIVE); URINE PROTEIN NEGATIVE (NEGATIVE); URINE RBC 34 /uL (0-23.9); URINE UROBILINOGEN 0.2 mg/dL (0.2-1.0); URINE WBC 230 /uL (0-25.8)
[2022-09-18] MEDS: THIAMINE HCL 100 MG TABLET (FP) PO SCH (22:30)
[2022-09-18] MEDS: traZODone HCL 50 MG TABLET (FP) PO SCH (22:30)
[2022-09-18] MEDS: hydrOXYzine PAMOATE 50 MG CAPSULE (FP) PO SCH (22:30)
[2022-09-18] MEDS: LIDOCAINE PATCH REMOVAL MC SCH (22:30)
[2022-09-19] MEDS: GABAPENTIN 300 MG CAPSULE PO SCH ×3 (06:30→22:00)
[2022-09-19] MEDS: PRENATAL VITAMINS W/ FOLIC ACID TABLET (FP) PO SCH (10:07)
[2022-09-19] MEDS: ASPIRIN 81 MG CHEWABLE TABLETS PO SCH (10:07)
[2022-09-19] MEDS: FAMOTIDINE 20 MG TABLET PO SCH ×2 (10:07→22:00)
[2022-09-19] MEDS: ESCITALOPRAM OXALATE 10 MG TABLET PO SCH (10:07)
[2022-09-19] MEDS: LIDOCAINE 5% TOPICAL PATCH TP SCH (10:07)
[2022-09-19] MEDS: BACITRACIN/POLYMYXIN B SULFATE 15 GM TUBE TP SCH (10:10)
[2022-09-19] MEDS: IBUPROFEN 400 MG TABLET (FP) PO PRN ×2 (10:12→22:03)
[2022-09-19] MEDS: traZODone HCL 50 MG TABLET (FP) PO SCH (22:00)
[2022-09-19] MEDS: hydrOXYzine PAMOATE 50 MG CAPSULE (FP) PO SCH (22:00)
[2022-09-19] MEDS: THIAMINE HCL 100 MG TABLET (FP) PO SCH (22:00)
[2022-09-19] MEDS: LIDOCAINE PATCH REMOVAL MC SCH (22:04)
[2022-09-20] MEDS: GABAPENTIN 300 MG CAPSULE PO SCH ×3 (06:44→21:43)
[2022-09-20] MEDS: LIDOCAINE 5% TOPICAL PATCH TP SCH (10:20)
[2022-09-20] MEDS: PRENATAL VITAMINS W/ FOLIC ACID TABLET (FP) PO SCH (10:20)
[2022-09-20] MEDS: BACITRACIN/POLYMYXIN B SULFATE 15 GM TUBE TP SCH (10:20)
[2022-09-20] MEDS: ASPIRIN 81 MG CHEWABLE TABLETS PO SCH (10:20)
[2022-09-20] MEDS: ESCITALOPRAM OXALATE 10 MG TABLET PO SCH (10:20)
[2022-09-20] MEDS: FAMOTIDINE 20 MG TABLET PO SCH ×2 (10:21→21:43)
[2022-09-20] MEDS: IBUPROFEN 600 MG TABLET (FP) PO PRN (11:54)
[2022-09-20] MEDS: traZODone HCL 50 MG TABLET (FP) PO SCH (21:43)
[2022-09-20] MEDS: THIAMINE HCL 100 MG TABLET (FP) PO SCH (21:43)
[2022-09-20] MEDS: hydrOXYzine PAMOATE 50 MG CAPSULE (FP) PO SCH (21:44)
[2022-09-20] MEDS: LIDOCAINE PATCH REMOVAL MC SCH (21:44)
[2022-09-21] MEDS: GABAPENTIN 300 MG CAPSULE PO SCH ×3 (06:18→21:32)
[2022-09-21] MEDS: PRENATAL VITAMINS W/ FOLIC ACID TABLET (FP) PO SCH (09:50)
[2022-09-21] MEDS: BACITRACIN/POLYMYXIN B SULFATE 15 GM TUBE TP SCH (09:51)
[2022-09-21] MEDS: ESCITALOPRAM OXALATE 10 MG TABLET PO SCH (09:51)
[2022-09-21] MEDS: ASPIRIN 81 MG CHEWABLE TABLETS PO SCH (09:51)
[2022-09-21] MEDS: FAMOTIDINE 20 MG TABLET PO SCH ×2 (09:51→21:32)
[2022-09-21] MEDS: LIDOCAINE 5% TOPICAL PATCH TP SCH (09:52)
[2022-09-21] MEDS: IBUPROFEN 600 MG TABLET (FP) PO PRN (10:56)
[2022-09-21] MEDS: hydrOXYzine PAMOATE 50 MG CAPSULE (FP) PO SCH (21:32)
[2022-09-21] MEDS: traZODone HCL 50 MG TABLET (FP) PO SCH (21:32)
[2022-09-21] MEDS: THIAMINE HCL 100 MG TABLET (FP) PO SCH (21:32)
[2022-09-21] MEDS: HYDROCORTISONE 2.5% TOPICAL CREAM 30 GM TUBE RC PRN (21:33)
[2022-09-21] MEDS: LIDOCAINE PATCH REMOVAL MC SCH (22:03)
[2022-09-22] MEDS: GABAPENTIN 300 MG CAPSULE PO SCH ×3 (06:00→21:43)
[2022-09-22] MEDS: ESCITALOPRAM OXALATE 10 MG TABLET PO SCH (09:57)
[2022-09-22] MEDS: PRENATAL VITAMINS W/ FOLIC ACID TABLET (FP) PO SCH (09:57)
[2022-09-22] MEDS: ASPIRIN 81 MG CHEWABLE TABLETS PO SCH (09:58)
[2022-09-22] MEDS: FAMOTIDINE 20 MG TABLET PO SCH ×2 (09:58→21:43)
[2022-09-22] MEDS: LIDOCAINE 5% TOPICAL PATCH TP SCH (09:59)
[2022-09-22] MEDS: BACITRACIN/POLYMYXIN B SULFATE 15 GM TUBE TP SCH (09:59)
[2022-09-22] MEDS: ACETAMINOPHEN 325 MG TABLET (FP) PO PRN (10:01)
[2022-09-22] MEDS: traZODone HCL 50 MG TABLET (FP) PO SCH (21:43)
[2022-09-22] MEDS: hydrOXYzine PAMOATE 50 MG CAPSULE (FP) PO SCH (21:43)
[2022-09-22] MEDS: THIAMINE HCL 100 MG TABLET (FP) PO SCH (21:43)
[2022-09-22] MEDS: LIDOCAINE PATCH REMOVAL MC SCH (21:43)
[2022-09-22] MEDS: MELATONIN 5 MG TABLETS PO PRN (21:44)
[2022-09-23] MEDS: GABAPENTIN 300 MG CAPSULE PO SCH ×3 (06:27→21:40)
[2022-09-23] MEDS: FAMOTIDINE 20 MG TABLET PO SCH ×2 (09:53→21:40)
[2022-09-23] MEDS: PRENATAL VITAMINS W/ FOLIC ACID TABLET (FP) PO SCH (09:53)
[2022-09-23] MEDS: ESCITALOPRAM OXALATE 10 MG TABLET PO SCH (09:54)
[2022-09-23] MEDS: ASPIRIN 81 MG CHEWABLE TABLETS PO SCH (09:54)
[2022-09-23] MEDS: LIDOCAINE 5% TOPICAL PATCH TP SCH (09:54)
[2022-09-23] MEDS: ACETAMINOPHEN 325 MG TABLET (FP) PO PRN (09:56)
[2022-09-23] MEDS: BACITRACIN/POLYMYXIN B SULFATE 15 GM TUBE TP SCH (12:07)
[2022-09-23] MEDS: hydrOXYzine PAMOATE 50 MG CAPSULE (FP) PO SCH (21:40)
[2022-09-23] MEDS: THIAMINE HCL 100 MG TABLET (FP) PO SCH (21:40)
[2022-09-23] MEDS: traZODone HCL 50 MG TABLET (FP) PO SCH (21:40)
[2022-09-23] MEDS: LIDOCAINE PATCH REMOVAL MC SCH (21:42)
[2022-09-24] MEDS: GABAPENTIN 300 MG CAPSULE PO SCH ×3 (06:39→21:38)
[2022-09-24] MEDS: ASPIRIN 81 MG CHEWABLE TABLETS PO SCH (10:31)
[2022-09-24] MEDS: FAMOTIDINE 20 MG TABLET PO SCH ×2 (10:31→21:38)
[2022-09-24] MEDS: ESCITALOPRAM OXALATE 10 MG TABLET PO SCH (10:31)
[2022-09-24] MEDS: LIDOCAINE 5% TOPICAL PATCH TP SCH (10:38)
[2022-09-24] MEDS: PRENATAL VITAMINS W/ FOLIC ACID TABLET (FP) PO SCH (10:38)
[2022-09-24] MEDS: BACITRACIN/POLYMYXIN B SULFATE 15 GM TUBE TP SCH (10:38)
[2022-09-24] MEDS: traZODone HCL 50 MG TABLET (FP) PO SCH (21:38)
[2022-09-24] MEDS: hydrOXYzine PAMOATE 50 MG CAPSULE (FP) PO SCH (21:38)
[2022-09-24] MEDS: THIAMINE HCL 100 MG TABLET (FP) PO SCH (21:38)
[2022-09-24] MEDS: LIDOCAINE PATCH REMOVAL MC SCH (23:46)
[2022-09-25] MEDS: GABAPENTIN 300 MG CAPSULE PO SCH ×3 (06:11→21:19)
[2022-09-25] MEDS: IBUPROFEN 600 MG TABLET (FP) PO PRN (06:11)
[2022-09-25] MEDS: PRENATAL VITAMINS W/ FOLIC ACID TABLET (FP) PO SCH (09:37)
[2022-09-25] MEDS: FAMOTIDINE 20 MG TABLET PO SCH ×2 (09:37→21:19)
[2022-09-25] MEDS: ESCITALOPRAM OXALATE 10 MG TABLET PO SCH (09:37)
[2022-09-25] MEDS: ASPIRIN 81 MG CHEWABLE TABLETS PO SCH (09:37)
[2022-09-25] MEDS: LIDOCAINE 5% TOPICAL PATCH TP SCH (09:39)
[2022-09-25] MEDS: BACITRACIN/POLYMYXIN B SULFATE 15 GM TUBE TP SCH (09:39)
[2022-09-25] MEDS: MAG HYDROX/AL HYDROX/SIMETH 30 ML UNIT-DOSE CUP PO PRN (19:09)
[2022-09-25] MEDS: THIAMINE HCL 100 MG TABLET (FP) PO SCH (21:19)
[2022-09-25] MEDS: hydrOXYzine PAMOATE 50 MG CAPSULE (FP) PO SCH (21:19)
[2022-09-25] MEDS: traZODone HCL 50 MG TABLET (FP) PO SCH (21:19)
[2022-09-25] MEDS: MELATONIN 5 MG TABLETS PO PRN (21:20)
[2022-09-25] MEDS: LIDOCAINE PATCH REMOVAL MC SCH (21:58)
[2022-09-26] MEDS: GABAPENTIN 300 MG CAPSULE PO SCH ×3 (06:39→21:44)
[2022-09-26] MEDS: ASPIRIN 81 MG CHEWABLE TABLETS PO SCH (10:07)
[2022-09-26] MEDS: ESCITALOPRAM OXALATE 10 MG TABLET PO SCH (10:07)
[2022-09-26] MEDS: PRENATAL VITAMINS W/ FOLIC ACID TABLET (FP) PO SCH (10:07)
[2022-09-26] MEDS: LIDOCAINE 5% TOPICAL PATCH TP SCH (10:08)
[2022-09-26] MEDS: BACITRACIN/POLYMYXIN B SULFATE 15 GM TUBE TP SCH (10:08)
[2022-09-26] MEDS: FAMOTIDINE 20 MG TABLET PO SCH ×2 (10:08→21:43)
[2022-09-26] MEDS: IBUPROFEN 600 MG TABLET (FP) PO PRN (10:10)
[2022-09-26] MEDS: hydrOXYzine PAMOATE 50 MG CAPSULE (FP) PO SCH (21:43)
[2022-09-26] MEDS: MELATONIN 5 MG TABLETS PO PRN (21:43)
[2022-09-26] MEDS: THIAMINE HCL 100 MG TABLET (FP) PO SCH (21:43)
[2022-09-26] MEDS: traZODone HCL 50 MG TABLET (FP) PO SCH (21:44)
[2022-09-26] MEDS: LIDOCAINE PATCH REMOVAL MC SCH (21:44)
[2022-09-27] MEDS: GABAPENTIN 300 MG CAPSULE PO SCH (06:14)
[2022-09-27 07:26] VITALS: TEMP 97.3
[2022-09-27] MEDS: PRENATAL VITAMINS W/ FOLIC ACID TABLET (FP) PO SCH (10:12)
[2022-09-27] MEDS: ASPIRIN 81 MG CHEWABLE TABLETS PO SCH (10:12)
[2022-09-27] MEDS: ESCITALOPRAM OXALATE 10 MG TABLET PO SCH (10:12)
[2022-09-27] MEDS: FAMOTIDINE 20 MG TABLET PO SCH (10:12)
[2022-09-27] MEDS: BACITRACIN/POLYMYXIN B SULFATE 15 GM TUBE TP SCH (10:12)
[2022-09-27 10:37] VITALS: BP 122/71; PULSE 71; RESP 18
[2022-09-27] MEDS: IBUPROFEN 600 MG TABLET (FP) PO PRN (11:05)
[2022-09-27] MEDS: LIDOCAINE 5% TOPICAL PATCH TP SCH (11:06)
== END 2022-09-27 12:10 | disposition home or self-care (01) | DRG 772 ==
LOC: YASAS 15:42 → Y5N 09-02 12:03
PROVIDERS: ADMIT Allergy & Immunology; ATTEND Psychiatry & Neurology Pain Medicine
PROC: HZ42ZZZ Group Counseling for Substance Abuse Treatment, Cognitive-Behavioral (ICD-10-PCS; principal; 2022-09-02)
DX: F10.20 Alcohol dependence, uncomplicated (principal); F41.9 Anxiety disorder, unspecified; F32.A Depression, unspecified; I10 Essential (primary) hypertension; J01.90 Acute sinusitis, unspecified; K04.7 Periapical abscess without sinus; M54.50 Low back pain, unspecified; G89.29 Other chronic pain; N39.0 Urinary tract infection, site not specified; B96.89 Other specified bacterial agents as the cause of diseases classified elsewhere; R19.7 Diarrhea, unspecified; Z86.59 Personal history of other mental and behavioral disorders
CPT/HCPCS: 26055; 36415; 80053; 81003; 82962; 85027; 86780; 87086; C9803-CS; U0003; U0005

== ENCOUNTER 2023-02-24 15:50 | Emergency (ER) | payer OTHER ==
[2023-02-24 16:06] VITALS: BP 113/61; PULSE 74; RESP 18; TEMP 98.2; BMI 32.9
[2023-02-24] MEDS ORDERED: METOCLOPRAMIDE HCL INJECTION 10 MG/2 ML VIAL IVPUSH ONE (16:57)
[2023-02-24] MEDS ORDERED: ACETAMINOPHEN 1000 MG/100 ML BAG IVPB ONE (16:57)
[2023-02-24] MEDS ORDERED: SODIUM CHLORIDE 0.9% 1000 ML INFUS.BAG IV ONE (16:57)
[2023-02-24] MEDS ORDERED: METOCLOPRAMIDE HCL INJECTION 10 MG/2 ML VIAL ONE (17:23)
[2023-02-24] MEDS ORDERED: ACETAMINOPHEN INJECTION 100 ML IVPB ONE (17:23)
[2023-02-24 17:37] LABS: BASO % 1.1 % (0-2.0); EOS % 2.1 % (0-4.5); HEMATOCRIT 40.6 % (32.4-45.2); HEMOGLOBIN 13.4 GM/dL (10.7-15.3); LYMPH % 33.9 % (8-40); MCH 27.9 pg (25.7-33.7); MCHC 32.9 g/dl (32.0-36.0); MEAN CELL VOLUME 84.8 fl (80-96); MEAN PLT VOLUME 7.5 fl (7.5-11.1); MONO % 13.2 % (3.8-10.2); NEUT % 49.7 % (42.8-82.8); PLATELET COUNT 235 10^3/uL (134-434); RBC 4.79 M/mm3 (3.60-5.2); RDW 13.8 % (11.6-15.6)
[2023-02-24 17:38] LABS: PH,URINE 5.5 (5.0-8.0); URINE APPEARANCE CLEAR; URINE BILIRUBIN NEGATIVE (NEGATIVE); URINE COLOR YELLOW; URINE GLUCOSE (UA) NEGATIVE (NEGATIVE); URINE KETONE NEGATIVE (NEGATIVE); URINE LEUK ESTERASE NEGATIVE (NEGATIVE); URINE NITRITE NEGATIVE (NEGATIVE); URINE PROTEIN NEGATIVE (NEGATIVE); URINE UROBILINOGEN 0.2 mg/dL (0.2-1.0)
[2023-02-24 18:15] LABS: POTASSIUM 4.2 mmol/L (3.5-5.1)
[2023-02-24 18:17] LABS: CALCIUM 8.8 mg/dL (8.5-10.1)
[2023-02-24 18:18] LABS: ALBUMIN 3.4 g/dl (3.4-5.0); BLOOD UREA NITROGEN 18.2 mg/dL (7-18); MAGNESIUM 2.5 mg/dL (1.8-2.4)
[2023-02-24 18:21] LABS: CREATININE 0.6 mg/dL (0.55-1.3)
[2023-02-24 18:22] LABS: BILIRUBIN,TOTAL 0.2 mg/dL (0.2-1)
[2023-02-24 23:17] LABS: INR 1.05 (0.83-1.09); PROTHROMBIN TIME (PATIENT) 12.2 SEC (9.7-13.0)
== END 2023-02-24 19:33 | disposition home or self-care (01) ==
LOC: JER 15:50
PROC: 3E033NZ Introduction of Analgesics, Hypnotics, Sedatives into Peripheral Vein, Percutaneous Approach (ICD-10-PCS; principal; 2023-02-24)
PROC: 3E033GC Introduction of Other Therapeutic Substance into Peripheral Vein, Percutaneous Approach (ICD-10-PCS; 2023-02-24)
DX: R51.9 Headache, unspecified (principal); R10.30 Lower abdominal pain, unspecified; N89.8 Other specified noninflammatory disorders of vagina
CPT/HCPCS: 36415; 70450-TC; 76830-TC; 80053; 81003; 83735; 85025; 85610; 85730; 86850; 86900; 86901; 87086; 99284-25